=== PATIENT | female | born 1985 ===

== ENCOUNTER 2016-09-23 13:51 | Emergency (ER) | payer MEDICAID ==
[2016-09-23 13:52] VITALS: BMI 28.8
[2016-09-23 14:06] VITALS: BP 160/67; PULSE 100; RESP 18; TEMP 98; O2SAT 100
--- NOTE | 2016-09-23 14:50 | ED PDOC ---
HPI: General Adult Time Seen by Provider: 09/23/16 14:20 Chief Complaint (Nursing): Abdominal Pain Chief Complaint (Provider): suprapubic pain History Per: Patient History/Exam Limitations: no limitations Additional Complaint(s): Danita Maza is a 30 year old female, with no previous medical history, who presents to the ED with complaints of suprapubic pain associated with low blood pressure and pale lips which happened while she was at work today. She denies any vaginal bleeding or urinary symptoms. Patient reports symptoms of low blood pressure and pale lips resolved but suprapubic pain persists. Patient reports being seen in [facility] but no labs were done because they were "too busy " to do one, she then further states that she was not informed in [facility] that she was . PMD: none provided Past Medical History Reviewed: Historical Data, Nursing Documentation, Vital Signs Vital Signs: Last Vital Signs Temp 98 F 09/23/16 14:03 Pulse 100 H 09/23/16 14:03 Resp 18 09/23/16 14:03 BP 160/67 H 09/23/16 14:03 Pulse Ox 100 09/24/16 17:43 - Medical History PMH: HTN (Preeclampsia) - Surgical History Surgical History: - Family History Family History: States: Unknown Family Hx - Immunization History Hx Tetanus Toxoid Vaccination: No Hx Influenza Vaccination: No Hx Pneumococcal Vaccination: No - Home Medications Home Medications: Ambulatory Orders Medication Instructions Recorded No Known Home Med 09/24/16 - Allergies Allergies/Adverse Reactions: Allergies Allergy/AdvReac Type Severity Reaction Status Date / Time naproxen Allergy Intermediate URTICARIA Verified 09/24/16 09:26 Review of Systems ROS Statement: Except As Marked, All Systems Reviewed And Found Negative Constitutional: Positive for: Other (low blood pressure ) ENT: Positive for: Other (pale lips ) Gastrointestinal: Positive for: Abdominal Pain (suprapubic ) Genitourinary Female: Negative for: Dysuria, Frequency, Incontinence, Hematuria , Vaginal Discharge, Vaginal Bleeding Physical Exam - Reviewed Nursing Documentation Reviewed: Yes Vital Signs Reviewed: Yes - Physical Exam Appears: Positive for: Well, Non-toxic, No Acute Distress Head Exam: Positive for: ATRAUMATIC, NORMAL INSPECTION, NORMOCEPHALIC Skin: Positive for: Normal Color, Warm, DRY Eye Exam: Positive for: EOMI, Normal appearance, PERRL ENT: Positive for: Normal ENT Inspection Neck: Positive for: Normal, Painless ROM Cardiovascular/Chest: Positive for: Regular Rate, Rhythm Respiratory: Positive for: CNT, Normal Breath Sounds Gastrointestinal/Abdominal: Positive for: Bowel Sounds, Soft, Tenderness (mild suprapubic ). Negative for: Mass, Distended, Guarding, Rebound Back: Positive for: Normal Inspection Extremity: Positive for: Normal ROM Neurologic/Psych: Positive for: Alert, Oriented - Laboratory Results Result Diagrams: 09/23/16 15:08 09/23/16 15:08 - ECG O2 Sat by Pulse Oximetry: 100 (RA) Pulse Ox Interpretation: Normal Medical Decision Making Medical Decision Making: Initial Impression: Initial plan: * Beta-HCG quantitative * Urine * Labs * Dextrose IV 1,000 ml at 1,000 ml/hr * Urinalysis * US OB preg 1st tri * reevaluation Scribe Attestation: Documented by Keysha Horne, acting as a scribe for Keysha Fiore MD. Provider Scribe Attestation: All medical record entries made by the Scribe were at my direction and personally dictated by me. I have reviewed the chart and agree that the record accurately reflects my personal performance of the history, physical exam, medical decision making, and the department course for this patient. I have also personally directed, reviewed, and agree with the discharge instructions and disposition. Disposition - Clinical Impression Clinical Impression: at early stage - Patient ED Disposition Is Patient to be Admitted: Transfer of Care - Disposition [facility] - 09/25/16 Disposition Time: 17:00 Condition: STABLE Additional Instructions: Come back in 3 days for repeat BHCG level and re-evaluation. Return sooner for any weakness, pain, bleeding, or dizziness. Vuelve en 3 palacios para repetir el nivel BHCG y re-evaluacin. Regrese antes para cualquier debilidad, dolor, sangrado o mareos. Instructions: Ectopic (ED), Abdominal Pain in (ED) Forms: [employer] (Serbian), [facility] ED School/Work Excuse Print Language: HUNGARIAN Patient Signed Over To: Jose Manuel Andrews Handoff Comments: Pending beta and ultrasound.
[2016-09-23 15:15] LABS: BASO % 0.5 % (0.0-2.0); EOS % 0.7 % (0.0-4.0); HEMOGLOBIN 14.4 g/dL (12.0-16.0); LYMPH # 1.6 K/uL (1.0-4.3); LYMPH % 30.9 % (20.0-40.0); MEAN CELL VOLUME 91.6 fl (81.0-99.0); MEAN CORPUSCULAR HEMOGLOBIN 30.6 pg (27.0-31.0); MEAN CORPUSCULAR HGB CONC 33.4 g/dL (33.0-37.0); MEAN PLATELET VOLUME 10.7 fl (7.2-11.7); MONO # 0.6 K/uL (0.0-0.8); MONO % 11.1 % (0.0-10.0); NEUT # 2.9 K/uL (1.8-7.0); NEUT % 56.8 % (50.0-75.0); NRBC % 0.2 % (0.0-0.0); RBC 4.71 Mil/uL (3.80-5.20); RED CELL DISTRIBUTION WIDTH 12.6 % (11.5-14.5); SQUAMOUS EPITHIAL 1 /hpf (0-5); URINE BACTERIA RARE (<OCC); URINE BILIRUBIN NEGATIVE (NEGATIVE); URINE BLOOD NEGATIVE (NEGATIVE); URINE CLARITY CLEAR (Clear); URINE COLOR YELLOW (YELLOW); URINE GLUCOSE (UA) NEG (Normal); URINE LEUKOCYTE ESTERASE NEG Leu/uL (Negative); URINE NITRATE NEGATIVE (NEGATIVE); URINE PROTEIN 30 mg/dL (NEGATIVE); URINE UROBILINOGEN 0.2-1.0 mg/dL (0.2-1.0); WHITE BLOOD COUNT 5.2 K/uL (4.8-10.8)
[2016-09-23 15:25] LABS: ALB/GLOB RATIO 1.4 (1.0-2.1); ALT/SGPT 43 U/L (9-52); AST/SGOT 31 U/L (14-36); BLOOD UREA NITROGEN 9 mg/dl (7-17); CALCIUM 9.5 mg/dL (8.4-10.2); GFR AFRICAN-AMERICAN > 60; GFR NON-AFRICAN AMERICAN > 60
--- NOTE | 2016-09-23 17:06 | ED PDOC ---
- Laboratory Results Result Diagrams: 09/23/16 15:08 09/23/16 15:08 Interpretation Of Abn Labs: 132.8 bhcg - ECG O2 Sat by Pulse Oximetry: 100 (RA) Pulse Ox Interpretation: Normal - Progress ED Course And Treament: 1705: Stable. Pending US read and bhcg. Here with preg and pelvic pain. Took over care from Dr. Fiore. 183: Stable. Pain free. Tolerated PO. Dr. Doss spoken to about case. Wants pt. to come back in 3 days for repeat bhcg. No clear for ectoptic as bhcg below threshold and pt. is pain free currently. Disposition - Clinical Impression Clinical Impression: Ectopic , at early stage - POA Present On Arrival: None - Disposition [facility]errals[facility] - 09/25/16 Disposition: Routine/Home Disposition Time: 18:39 Condition: STABLE Additional Instructions: Come back in 3 days for repeat BHCG level and re-evaluation. Return sooner for any weakness, pain, bleeding, or dizziness. Instructions: Ectopic (ED), Abdominal Pain in (ED) Forms: [employer] (Guamanian)
--- NOTE | 2016-09-23 18:13 | US ---
PROCEDURE: First trimester ultrasound. LMP 08/14/2016 HISTORY: Suprapubic pain COMPARISON: None TECHNIQUE: Transabdominal, transvaginal. Real -time technique with 2D, duplex and color Doppler. FINDINGS: Endometrial echo complex thickness 25.5 mm. Small gestational sac 0.25 cm. This is below the threshold for calculation of reliable gestational age based on sac measurement. No yolk sac or pole identified. Uterus measures 5 x 6.3 x 9.3 cm. Right ovary 2.3 x 3 cm. Doppler arterial waveform documented. Left ovary 2.5 x 3.8 cm. Doppler arterial waveform documented. No evidence of torsion. However, there is an area of hypervascularity about a cystic area in the left ovary. This raises the possibility of ectopic gestation. IMPRESSION: Tiny gestational sac without yolk sac or pole. This consistent with information provided by the referring physician in the emergency department at time of this interpretation. Additional information provided above.
== END 2016-09-23 19:28 | disposition home or self-care (01) ==
LOC: H.ER 13:51
DX: R42 Dizziness and giddiness (principal); O00.90 Unspecified ectopic pregnancy without intrauterine pregnancy; I10 Essential (primary) hypertension

== ENCOUNTER 2017-03-02 12:53 | Emergency (ER) | payer MEDICAID ==
[2017-02-09 10:24] VITALS: BMI 32.1
--- NOTE | 2017-03-02 15:56 | OBHP ---
Datetime: 03/02/2017 15:48 IP Adm Impression: , intrauterine ; No Active Labor IP Chief Complaint Other: Nausea_ Vomiting IP Admit Plan: Observation/Evaluation; Discharge home Admit Comment, IP Provider: with IUP at 26wks present here today with some nausea and loose sto ols X3 today. Pt denies fever and chills or loss of appetite. Pt reports feeeling better on coming to the labor floor. Biron- none, FHR- Regular, Cx- 0/0/-3. Assessment: IUP at 26wks NST - reactive. Plan: D/C Home. Encourage oral fluids. F/u with regular OB clinic in 1 week. Labor instructions given. Pelvic Type - PN: Adequate Extremities - PN: Normal Abdomen - PN: Normal Back - PN: Normal Heart - PN: Normal Thyroid - PN: Normal Neurologic - PN: Normal General - PN: Normal FHR - Baseline A Provider: 130s Membranes, Provider: Intact Comments, ACOG Physical Exam: Abd: Soft, Nt, BS- present. CVA Tenderness- Negative. Gestation - Est Wks by US: 26.6 EGA AdmitDate IP: 26.6 Vital Signs Provider: Reviewed IP Chief Complaint: Maternal discomfort NICHD Variability Prov Fetus A: Moderate 6-25bpm NICHD Accel Fetus A IP Provider: [id number] NICHD Decel Fetus A IP Provider: None Dilatation, Provider: 0 Effacement, Provider: 0 Station, Provider: -3 Genitourinary Exam: Normal
[2017-03-02 20:14] VITALS: BP 126/66; PULSE 83; RESP 16; O2SAT 100
== END 2017-03-02 15:25 | disposition home or self-care (01) ==
LOC: H.EROB2 12:53
DX: O21.0 Mild hyperemesis gravidarum (principal); O26.92 Pregnancy related conditions, unspecified, second trimester; R19.7 Diarrhea, unspecified; Z3A.26 26 weeks gestation of pregnancy

== ENCOUNTER 2017-05-05 16:12 | Emergency (ER) | payer MEDICAID ==
[2017-05-05 16:52] VITALS: BMI 34.7
[2017-05-05 17:18] LABS: HEMOGLOBIN 12.5 g/dL (12.0-16.0); MEAN CORPUSCULAR HEMOGLOBIN 30.5 pg (27.0-31.0); MEAN CORPUSCULAR HGB CONC 32.8 g/dL (33.0-37.0); RBC 4.09 Mil/uL (3.80-5.20); RED CELL DISTRIBUTION WIDTH 13.2 % (11.5-14.5); WHITE BLOOD COUNT 8.8 K/uL (4.8-10.8)
[2017-05-05 17:34] LABS: ALT/SGPT 20 U/L (9-52); AST/SGOT 16 U/L (14-36); BLOOD UREA NITROGEN 11 mg/dl (7-17); CALCIUM 8.8 mg/dL (8.4-10.2); GFR AFRICAN-AMERICAN > 60; GFR NON-AFRICAN AMERICAN > 60; URIC ACID 3.5 mg/Dl (2.2-7.5)
[2017-05-05 18:39] LABS: SQUAMOUS EPITHIAL 1 /hpf (0-5); URINE BACTERIA OCC (<OCC); URINE BILIRUBIN NEGATIVE (NEGATIVE); URINE BLOOD NEGATIVE (NEGATIVE); URINE CLARITY SLIGHTY-CLOUDY (Clear); URINE COLOR STRAW (YELLOW); URINE GLUCOSE (UA) NEG (Normal); URINE LEUKOCYTE ESTERASE NEG Leu/uL (Negative); URINE NITRATE NEGATIVE (NEGATIVE); URINE PROTEIN NEGATIVE (NEGATIVE); URINE UROBILINOGEN 0.2-1.0 mg/dL (0.2-1.0)
--- NOTE | 2017-05-05 21:33 | OBHP ---
Datetime: 05/05/2017 19:42 IP Adm Impression: Term, intrauterine ; No Active Labor; Intact Membranes IP Admit Plan: Observation/Evaluation Admit Comment, IP Provider: late entry; 31 yo at 37+ weeks, LMP 08/14/16 and [facility] 05/26 as per pt, presented to [facility] with complaint of thigh/leg swelling x1 month. Denies vaginal bleeding, denies contractions, denies loss of fluid. Rep orts good movement. Has hx of pre-eclampsia in 1st . Reports that blood pressure has b een normotensive throughout this . On ROS, admits to headaches with visual changes and ringi ng in her ears. Otherwise, denies chest pain, shortness of breath, nausea, vomiting, burning with [place]. care: [facility]. OB hx: 2x , primary in 2009 due to preeclamsia, and repeat in 2012. 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 Med hx: none, denies Surg hx: 2 c-sections Fam hx: none, denies Social hx: denies tobacco alcohol illicit drug use Meds: pnv Allergies: naproxen - gets rash. states she is not allergic to ibuprofen or other nsaids that she knows of. PE: Gen: alert, oriented, NAD CV: S1S2, RRR Resp: clear breath sounds bilaterally throughout Abd: gravid, +BS, no RUQ pain/tenderness. Ext: no marked edema noted, no pitting edema SVE done by Dr. Doss earlier: closed, thick, high Assessment: 31 yo at 37+ weeks, with possible preeclamsia. Plan: Labs: cbc, uric acid, fibrinogen, cmp, urinalysis Labs resulted: wnl, neg for protein in urine, AST,ALT wnl. Normotensive in [facility]. No contractions o n toco, reactive NST. Pt stable for d/c home; labor precautions. Discussed w/ Dr. Doss. -[id number] OB hospitalist on-call - Using Marie May as delicatessen goods stock clerk, I interviewed and examined this p atinet. Agree with note. MAHNDO pre-eclampsia warnign given to pt upon discharge Abdomen - PN: Normal Back - PN: Normal Breast - PN: Not Done Lungs - PN: Normal Heart - PN: Normal Thyroid - PN: Not Done Neurologic - PN: Normal HEENT - PN: Normal General - PN: Normal Membranes, Provider: Intact Pool Provider: Negative IP Hx Assessment: The History has been Reviewed and is Current EGA AdmitDate IP: 37.0 IP Chief Complaint: Signs/Symptoms Gestational HTN FHR Category Provider Fetus A: Category I Dilatation, Provider: 0 Effacement, Provider: thick Station, Provider: high
--- NOTE | 2017-05-05 21:35 | OBDCSUM ---
Datetime: 05/05/2017 20:10 Discharged to, Provider: Home Follow up at, Provider: [facility] Disch Instr Activity: Normal activity Disch Instr Diet: Regular Discharge Time: 05/05/2017 20:20 Follow up in weeks, Provider: May 12 at 930 for scheduled appointment Disch Referrals: None Discharge Comment, Provider: labs and BP rev'd; Pre-eclampsia warning Discharge Diagnosis Prov Other: JACKSON - no evidence of pre-eclampsia :
[2017-05-06 00:49] VITALS: BP 123/76; PULSE 83; RESP 16; TEMP 98.3; O2SAT 100
== END 2017-05-05 20:20 | disposition home or self-care (01) ==
LOC: H.EROB2 16:12
DX: O26.93 Pregnancy related conditions, unspecified, third trimester (principal); R51 Headache; Z3A.37 37 weeks gestation of pregnancy